=== PATIENT | female | born 1935 | race Caucasian/White ===

== ENCOUNTER 2017-05-21 19:19 | Emergency (ER) | payer MEDICARE, OTHER ==
[2017-05-21] MEDS ORDERED: Sodium Chloride 0.9% 10 ML Syringe FLUSH PRN (19:52)
--- NOTE | 2017-05-21 19:58 | EDM.PDOC ---
ED HPI GENERAL MEDICAL PROBLEM - General Chief Complaint: Abdominal Pain Stated Complaint: right side pain Time Seen by Provider: 05/21/17 19:35 Source of Information: Reports: Patient, RN Notes Reviewed History Limitations: Reports: No Limitations - History of Present Illness INITIAL COMMENTS - FREE TEXT/NARRATIVE: 81 year old female presents to the ED with right flank and RLQ abdominal pain. Symptoms started this morning. She describes the pain as severe. The pain is colicky in nature. She had a large, somewhat loose bowel movement this morning. She has some nausea but no vomiting. She denies urinary symptoms, dysuria, frequency, urgency, or hematuria. She has no history of kidney stones. No fever or chills. She has a history of cholecystectomy and total hystorectomy. She still has her appendix. Right Lower Abdomen Pain Score (Numeric/FACES): 7 - Related Data Allergies Allergy/AdvReac Type Severity Reaction Status Date / Time No Known Allergies Allergy Verified 05/21/17 19:33 Home Meds: Home Meds Acetaminophen with Codeine [Acetaminop-Codeine 120-12 mg/5] 5 - 7.5 ml PO Q6H PRN #120 ml 05/21/17 [Rx] Albuterol [Ventolin HFA] 1 puff INH Q4H 05/21/17 [History] Aspirin 162 mg PO ONCALL PRN 05/21/17 [History] Potassium Chloride 20 meq PO DAILY 05/21/17 [History] Simvastatin [Zocor] 20 mg PO DAILY 05/21/17 [History] Triamterene/Hydrochlorothiazid [Triamterene-HCTZ 37.5-25 MG] 1 tab PO DAILY [History] amLODIPine [Norvasc] 10 mg PO DAILY 05/21/17 [History] Past Medical History HEENT History: Reports: Cataract, Hard of Hearing, Impaired Vision Other HEENT History: Wears glasses Cardiovascular History: Reports: High Cholesterol, Hypertension, Other (See Below) Other Cardiovascular History: phlebitis Respiratory History: Reports: Asthma [employer] History: Reports: Hematologic History: Reports: Blood Transfusion(s) - Past Surgical History HEENT Surgical History: Reports: Cataract Surgery, Tonsillectomy GI Surgical History: Reports: Cholecystectomy Female Surgical History: Reports: Section, Hysterectomy, Salpingo- Oophorectomy Social & Family History - Tobacco Use Smoking Status *Q: Never Smoker - Recreational Drug Use Recreational Drug Use: No ED ROS GENERAL - Review of Systems Review Of Systems: See Below Constitutional: Reports: No Symptoms. Denies: Fever, Chills, Diaphoresis Respiratory: Reports: No Symptoms. Denies: Shortness of Breath Cardiovascular: Reports: No Symptoms. Denies: Chest Pain GI/Abdominal: Reports: Abdominal Pain, Nausea. Denies: Black Stool, Bloody Stool, Constipation, Diarrhea, Decreased Appetite, Distension, Vomiting : Reports: Flank Pain. Denies: Dysuria, Frequency, Hematuria, Urgency ED EXAM, GI/ABD - Physical Exam Exam: See Below Exam Limited By: No Limitations General Appearance: Alert, WD/WN, No Apparent Distress Respiratory/Chest: No Respiratory Distress, Lungs Clear, Normal Breath Sounds, No Accessory Muscle Use, Chest Non-Tender Cardiovascular: Normal Peripheral Pulses, Regular Rate, Rhythm, No Murmur GI/Abdominal Exam: Normal Bowel Sounds, Soft, No Organomegaly, Tender (RLQ ) Back Exam: Normal Inspection, Full Range of Motion, CVA Tenderness (R). No: CVA Tenderness (L) Neurological: Alert, Oriented, Normal Cognition Skin Exam: Warm, Dry, Intact Course - Vital Signs Last Recorded V/S: Last Vital Signs Temp 97.5 F 05/21/17 19:37 Pulse 87 05/21/17 19:37 Resp 18 05/21/17 19:37 BP 175/85 H 05/21/17 19:37 Pulse Ox 100 05/21/17 19:37 - Orders/Labs/Meds Orders: Active Orders 24 hr Category Date Time Status Peripheral IV Care [RC] . DIRECTED Care 05/21/17 19:53 Active Abdomen Pelvis wo Cont [CT] Stat Exams 05/21/17 19:53 Taken Sodium Chloride 0.9% [Normal Saline] 1,000 ml Med 05/21/17 20:08 Active IV ONETIME Sodium Chloride 0.9% [Saline Flush] Med 05/21/17 19:52 Active 10 ml FLUSH ASDIRECTED PRN Peripheral IV Insertion Adult [OM.PC] Stat Oth 05/21/17 19:52 Ordered Medication Orders Sodium Chloride (Normal Saline) 1,000 mls @ 200 mls/hr IV ONETIME ONE Stop: 05/22/17 01:07 Last Admin: 05/21/17 20:16 Dose: 200 mls/hr Sodium Chloride (Saline Flush) 10 ml FLUSH ASDIRECTED PRN PRN Reason: Keep Vein Open Last Admin: 05/21/17 20:17 Dose: 10 ml Labs: Laboratory Tests 05/21/17 05/21/17 05/21/17 Range/Units 20:04 20:04 21:00 WBC 9.08 (3.98-10.04) K/mm3 RBC 4.69 (3.98-5.22) M/mm3 Hgb 13.4 (11.2-15.7) gm/L Hct 40.8 (34.1-44.9) % MCV 87.0 (79.4-94.8) fl MCH 28.6 (25.6-32.2) pg MCHC 32.8 (32.2-35.5) g/dl RDW Std Deviation 42.2 (36.4-46.3) fL Plt Count 326 (182-369) K/mm3 MPV 9.2 L (9.4-12.3) fl Neut % (Auto) 77.3 H (34.0-71.1) % Lymph % (Auto) 15.5 L (19.3-51.7) % [place] % (Auto) 6.7 (4.7-12.5) % Eos % (Auto) 0.2 L (0.7-5.8) Baso % (Auto) 0.2 (0.1-1.2) % Neut # (Auto) 7.01 H (1.56-6.13) K/mm3 Lymph # (Auto) 1.41 (1.18-3.74) K/mm3 [place] # (Auto) 0.61 H (0.24-0.36) K/mm3 Eos # (Auto) 0.02 L (0.04-0.36) K/mm3 Baso # (Auto) 0.02 (0.01-0.08) K/mm3 Sodium 140 (136-145) mEq/L Potassium 3.7 (3.5-5.1) mEq/L Chloride 102 (98-107) mEq/L Carbon Dioxide 26 (21-32) mEq/L Anion Gap 15.7 H (5-15) BUN 19 H (7-18) mg/dL Creatinine 0.9 (0.55-1.02) mg/dL Est Cr Clr Drug Dosing 35.81 mL/min Estimated GFR (MDRD) > 60 (>60) mL/min BUN/Creatinine Ratio 21.1 H (14-18) Glucose 114 (83-115) mg/dL Calcium 10.3 H (8.5-10.1) mg/dL Total Bilirubin 0.6 (0.2-1.0) mg/dL AST 22 (15-37) U/L ALT 17 (14-59) U/L Alkaline Phosphatase 51 (46-116) U/L C-Reactive Protein < 0.2 (<1.0) mg/dL Total Protein 9.1 H (6.4-8.2) g/dl Albumin 4.3 (3.4-5.0) g/dl Globulin 4.8 gm/dL Albumin/Globulin Ratio 0.9 L (1-2) Urine Color Yellow (Yellow) Urine Appearance Clear (Clear) Urine pH 7.0 (5.0-8.0) Ur Specific [place] 1.025 (1.005-1.030) Urine Protein Trace H (Negative) Urine Glucose (UA) Negative (Negative) Urine Ketones 1+ H (Negative) Urine Occult Blood Trace-intact H (Negative) Urine Nitrite Negative (Negative) Urine Bilirubin Negative (Negative) Urine Urobilinogen 0.2 (0.2-1.0) Ur Leukocyte Esterase Negative (Negative) Urine RBC 5-10 H (0-5) /hpf Urine WBC 0-5 (0-5) /hpf Ur Epithelial Cells 0-5 (0-5) /hpf Amorphous Sediment Moderate H (NOT SEEN) /hpf Urine Bacteria Few (FEW) /hpf Hyaline Casts 0-5 (0-5) /lpf Urine Mucus Moderate H (FEW) /hpf Meds: Medications Generic Name Dose Route Start Last Admin Trade Name Freq PRN Reason Stop Dose Admin Sodium Chloride 1,000 mls @ 200 mls/hr 05/21/17 20:08 05/21/17 20:16 Normal Saline IV 05/22/17 01:07 200 mls/hr ONETIME ONE Administration Sodium Chloride 10 ml 05/21/17 19:52 05/21/17 20:17 Saline Flush FLUSH 10 ml ASDIRECTED PRN Administration Keep Vein Open Discontinued Medications Generic Name Dose Route Start Last Admin Trade Name Freq PRN Reason Stop Dose Admin Hydromorphone HCl 0.5 mg 05/21/17 20:11 05/21/17 20:16 Dilaudid IVPUSH 05/21/17 20:12 0.5 mg ONETIME ONE Administration - Re-Assessments/Exams Free Text/Narrative Re-Assessment/Exam: CBC, CMP and CRP are unremarkable. The patient was unable to give UA, she reports that she has difficulty giving samples due when at the clinic or hospital. Non-contrast abdomen/pelvis CT read by [facility], impression: 1. 2mm obstructing stone at the right ureterovesicular junction. 2. Non-acute findings Patient was notified of findings. She is unable to take pills and requires liquid medication. She will be given an Rx for Tylenol with Codeine for more severe pain. The stone is close to the bladder, it's unlikely she will need opiate pain medication. She was educated on supportive care, f/u and return precautions. Discharge instructions as documented. Departure - Departure Time of Disposition: 21:23 Disposition: Home, Self-Care 01 Condition: Good Clinical Impression: Kidney stone on right side - Discharge Information Prescriptions: Acetaminophen with Codeine [Acetaminop-Codeine 120-12 mg/5] 5 - 7.5 ml PO Q6H PRN #120 ml PRN Reason: Pain Referrals: Latrice Felton, [facility] [Primary Care Provider] - Forms: ED Department Discharge Additional Instructions: Rest and drink plenty of water Consider drinking lemonade daily to help prevent kidney stone formation Ibuprofen 400-600mg every 6-8 hours as needed for pain You can take Tylenol with Codeine for more severe pain, 5-7.5ml every 4-6 hours as needed Follow-up in clinic if not improved in 2-3 days Return to ER with worsening of symptoms, fever, or additional concerns Strain your urine to monitor for stone passage - My Orders Last 24 Hours: My Active Orders 05/21/17 19:52 Sodium Chloride 0.9% [Saline Flush] 10 ml FLUSH ASDIRECTED PRN Peripheral IV Insertion Adult [OM.PC] Stat 05/21/17 19:53 Peripheral IV Care [RC] . DIRECTED Abdomen Pelvis wo Cont [CT] Stat 05/21/17 20:08 Sodium Chloride 0.9% [Normal Saline] 1,000 ml IV ONETIME - Assessment/Plan Last 24 Hours: My Active Orders 05/21/17 19:52 Sodium Chloride 0.9% [Saline Flush] 10 ml FLUSH ASDIRECTED PRN Peripheral IV Insertion Adult [OM.PC] Stat 05/21/17 19:53 Peripheral IV Care [RC] . DIRECTED Abdomen Pelvis wo Cont [CT] Stat 05/21/17 20:08 Sodium Chloride 0.9% [Normal Saline] 1,000 ml IV ONETIME
[2017-05-21] MEDS ORDERED: Sodium Chloride 0.9% 1,000 ML IV ONE (20:08)
[2017-05-21] MEDS ORDERED: HYDROmorphone 0.5 MG/0.5 ML Syringe IVPUSH ONE (20:11)
[2017-05-21 21:48] VITALS: BP 139/74
--- NOTE | 2017-05-22 10:50 | CT ---
CT abdomen and pelvis Technique: Multiple axial sections were obtained from top of the liver inferiorly through the pubic symphysis. Intravenous and oral contrast not utilized. Study has been performed as a ureteral stone protocol. Findings: Mildly prominent right ureter is seen down to the UVJ. Obstructing stone measures about 3 mm in size. No other abnormal calcifications are seen along the course of the ureters. Small nonobstructing calculi are noted within both kidneys. Small cysts are seen within both kidneys. Visualized lung bases shows nothing acute. Noncontrast appearance of the liver is within normal limits. Small hiatal hernia is seen. Surgical clips are noted from prior cholecystectomy. Spleen size is normal. Adrenal glands show no nodule. Pancreas is within normal limits. Aorta shows atherosclerotic calcification which continues into the iliac vessels. No aneurysm is seen. No retroperitoneal adenopathy or mesenteric abnormalities are seen. No pelvic mass or adenopathy is seen. Bone window settings were reviewed which show scattered degenerative change within the spine which is most severe at L2-L3 with severe disc space narrowing and vacuum phenomena and mild retrolisthesis. Impression: 1. 3 mm obstructing stone within the distal right ureter near the UVJ. 2. Several small nonobstructing calculi within both kidneys as well as incidental small cysts. 3. Other incidental findings as described above. Diagnostic code #3 Agree with preliminary report issued by [facility] [facility] ([facility] preliminary report dictated on 05/21/17, 10:01 PM Central Time)
== END 2017-05-21 21:45 | disposition home or self-care (01) ==
LOC: JD.ED 19:19
DX: N20.2 Calculus of kidney with calculus of ureter (principal); E78.00 Pure hypercholesterolemia, unspecified; I10 Essential (primary) hypertension; J45.909 Unspecified asthma, uncomplicated; Z98.890 Other specified postprocedural states; Z98.49 Cataract extraction status, unspecified eye; Z90.49 Acquired absence of other specified parts of digestive tract; Z79.82 Long term (current) use of aspirin; Z79.899 Other long term (current) drug therapy
CPT/HCPCS: 36415; 74176; 80053; 81001; 85025; 86140; 96361; 96374; 99284; J1170; J7040; J7050; 99283